=== PATIENT | female | born 1975 | race African-American/Black ===

== ENCOUNTER 2018-10-04 20:06 | Emergency (ER) | payer SELFPAY ==
[~2018-10-04] VITALS: Ht 167.6 cm; Wt 81.6 kg
--- NOTE | 2018-10-04 20:15 | NUR ---
PT [id number] FROM STRE[address] C/O "SICKLE CELL CRISIS" X 2 DAYS. PT ON MONITOR IN BED 9. WILL CONTINUE TO MONITOR.
--- NOTE | 2018-10-04 20:39 | NUR ---
PHLEB AT BEDSIDE FOR LAB DRAW
--- NOTE | 2018-10-04 20:55 | NUR ---
PHLEB UNABLE TO DRAW. AWARE.
[2018-10-04] MEDS ORDERED: HYDROMORPHONE HCL 2 MG TABLET PO PRN ×2 (21:00→23:30)
[2018-10-04] MEDS ORDERED: HYDROMORPHONE HCL 2 MG TABLET ONE ×2 (21:08→23:23)
--- NOTE | 2018-10-04 22:22 | NUR ---
LABS DRAWN AND GIVEN TO LAB
[2018-10-04 22:30] LABS: EOSINOPHILS % (AUTO) 1.2 % (0.0-6.0); HEMATOCRIT 32 % (33-45); HEMOGLOBIN 9.7 g/dL (11.5-14.8); LYMPHOCYTES # (AUTO) 1.7 /CMM (0.8-4.8); LYMPHOCYTES % (AUTO) 44.5 % (20.0-44.0); MEAN CORPUSCULAR HGB CONC 31 g/dl (31.0-36.0); MEAN CORPUSCULAR VOLUME 79 fL (82-100); MONOCYTES # (AUTO) 0.2 /CMM (0.1-1.30); MONOCYTES % (AUTO) 6.4 % (2.0-12.0); NEUTROPHILS # (AUTO) 1.8 /CMM (1.8-8.9); NEUTROPHILS % (AUTO) 46.9 % (43.0-81.0); PLATELET COUNT (AUTO) 235 /CMM (150-450); RED BLOOD CELL COUNT(AUTO) 4.02 MIL/uL (4.0-5.2); WHITE BLOOD COUNT (AUTO) 3.8 K/uL (4.3-11.0)
[2018-10-04 22:39] LABS: CALCIUM, SERUM 8.3 mg/dL (8.5-10.1); CREATININE 1.2 mg/dL (0.6-1.3); POTASSIUM 4.3 mmol/L (3.5-5.1)
[2018-10-04 22:46] VITALS: BP 119/61
[2018-10-05] MEDS ORDERED: HYDROMORPHONE HCL 2 MG TABLET PO PRN
[2018-10-05] MEDS ORDERED: HYDROMORPHONE HCL 2 MG TABLET ONE (00:24)
[2018-10-05] MEDS ORDERED: diphenhydrAMINE HCL 25 MG CAPSULE ONE (00:37)
[2018-10-05] MEDS ORDERED: diphenhydrAMINE HCL ELIX 25 MG/10 ML UDC ONE (00:39)
[2018-10-05] MEDS ORDERED: DIPHENHYDRAMINE HCL 12.5 MG/5 ML UDC PO ONE (01:00)
--- NOTE | 2018-10-05 01:03 | NUR ---
IV removed. Catheter intact and site benign. Pressure and 4x4 applied to site. No bleeding noted.Patient discharged to home in stable condition. Written and verbal after care instructions given. Patient verbalizes understanding of instruction.
== END 2018-10-05 01:09 | disposition home or self-care (01) ==
LOC: ER 20:10
DX: D57.1 Sickle-cell disease without crisis (principal); E11.9 Type 2 diabetes mellitus without complications; Z86.718 Personal history of other venous thrombosis and embolism; Z86.711 Personal history of pulmonary embolism; Z98.890 Other specified postprocedural states; Z98.51 Tubal ligation status; Z88.6 Allergy status to analgesic agent; Z59.0 Homelessness
CPT/HCPCS: 36415; 71045; 80048; 85025; 85045; 99284; A4606; Q0163 ×2; Z7610

== ENCOUNTER 2018-10-21 07:11 | Emergency (ER) | payer SELFPAY ==
[~2018-10-21] VITALS: Ht 167.6 cm; Wt 81.6 kg
[2018-10-21] MEDS ORDERED: LIDOCAINE 1%-EPI 1:100,000 20 ML VIAL ONE (07:29)
[2018-10-21] MEDS ORDERED: HYDROMORPHONE INJ 2 MG/ML DISP.SYRIN IM ONE (07:30)
[2018-10-21] MEDS ORDERED: diphenhydrAMINE HCL 50 MG/ML VIAL IM ONE (07:30)
[2018-10-21] MEDS ORDERED: LIDOCAINE 1%-EPI 1:100,000 50 ML VIAL IJ ONE (07:30)
[2018-10-21] MEDS ORDERED: diphenhydrAMINE HCL 50 MG/ML VIAL ONE (07:32)
[2018-10-21] MEDS ORDERED: HYDROMORPHONE INJ 2 MG/ML DISP.SYRIN ONE (07:32)
[2018-10-21 07:53] VITALS: BP 121/88
--- NOTE | 2018-10-21 07:58 | NUR ---
Patient discharged to home in stable condition. Written and verbal after care instructions given. Patient verbalizes understanding of instruction.
== END 2018-10-21 07:57 | disposition home or self-care (01) ==
LOC: ER 07:11
DX: L02.413 Cutaneous abscess of right upper limb (principal); G89.29 Other chronic pain; E11.9 Type 2 diabetes mellitus without complications; F17.200 Nicotine dependence, unspecified, uncomplicated; Z60.2 Problems related to living alone; Z88.6 Allergy status to analgesic agent; Z98.890 Other specified postprocedural states; Z98.51 Tubal ligation status; Z86.718 Personal history of other venous thrombosis and embolism; Z86.711 Personal history of pulmonary embolism
CPT/HCPCS: A6403; J1170; J1200; J3490

== ENCOUNTER 2018-12-07 16:57 | Emergency (ER) | payer SELFPAY ==
[~2018-12-07] VITALS: Ht 167.6 cm; Wt 78.9 kg
[2018-12-07] MEDS ORDERED: ONDANSETRON 4 MG TAB.RAPDIS SL ONE (17:30)
[2018-12-07] MEDS ORDERED: HYDROMORPHONE INJ 2 MG/ML DISP.SYRIN IM ONE (17:30)
[2018-12-07] MEDS ORDERED: diphenhydrAMINE HCL ELIX 25 MG/10 ML UDC PO ONE (17:30)
--- NOTE | 2018-12-07 17:30 | NUR ---
PT AMBULATORY ADMIT TO ER FOR GENERALZIED SICKLE CELL PAIN. PT REPORTS 9/10 GENERALIZED PAIN. MD AT BEDSIDE.
[2018-12-07] MEDS ORDERED: HYDROMORPHONE INJ 2 MG/ML DISP.SYRIN ONE (17:35)
[2018-12-07] MEDS ORDERED: ONDANSETRON 4 MG TAB.RAPDIS ONE (17:35)
[2018-12-07] MEDS ORDERED: diphenhydrAMINE HCL ELIX 25 MG/10 ML UDC ONE (17:35)
--- NOTE | 2018-12-07 17:47 | NUR ---
UA SUBMITTED, MEDS ADMINSITERED PER RX. LAB PRESENT FOR DRAWS
[2018-12-07 18:18] LABS: BASOPHILS % (AUTO) 0.7 % (0.0-2.0); EOSINOPHILS % (AUTO) 1.8 % (0.0-6.0); HEMATOCRIT 38 % (33-45); HEMOGLOBIN 11.2 g/dL (11.5-14.8); LYMPHOCYTES # (AUTO) 1.2 /CMM (0.8-4.8); LYMPHOCYTES % (AUTO) 33.9 % (20.0-44.0); MEAN CORPUSCULAR HGB CONC 30 g/dl (31.0-36.0); MEAN CORPUSCULAR VOLUME 86 fL (82-100); MONOCYTES # (AUTO) 0.3 /CMM (0.1-1.30); MONOCYTES % (AUTO) 7.6 % (2.0-12.0); NEUTROPHILS # (AUTO) 2.1 /CMM (1.8-8.9); PLATELET COUNT (AUTO) 275 /CMM (150-450); RED BLOOD CELL COUNT(AUTO) 4.45 MIL/uL (4.0-5.2); WHITE BLOOD COUNT (AUTO) 3.7 K/uL (4.3-11.0)
[2018-12-07 18:35] LABS: ALBUMIN 3.3 g/dL (3.4-5.0); BILIRUBIN,DIRECT 0.1 mg/dL (0.0-0.2); BILIRUBIN,TOTAL 0.4 mg/dL (0.2-1.0); CALCIUM, SERUM 8.7 mg/dL (8.5-10.1); CREATININE 1.6 mg/dL (0.6-1.3); POTASSIUM 4.3 mmol/L (3.5-5.1); TOTAL PROTEIN, SERUM 9.9 g/dL (6.4-8.2)
[2018-12-07] MEDS ORDERED: INSU100V7 SQ (18:46)
[2018-12-07] MEDS ORDERED: INSU100V11 SQ (18:46)
[2018-12-07] MEDS ORDERED: DIPH50CA4 PO (18:46)
[2018-12-07] MEDS ORDERED: FOLI1TAB16 PO (18:46)
[2018-12-07] MEDS ORDERED: HYDR500C2 PO (18:46)
[2018-12-07] MEDS ORDERED: RIVA10TA PO (18:46)
[2018-12-07] MEDS ORDERED: HYDR4TAB57 PO (18:46)
[2018-12-07] MEDS ORDERED: IV NS 0.9% 1,000 ML BAG IV ONE ×2 (19:00→20:00)
--- NOTE | 2018-12-07 19:17 | NUR ---
ENDORSED CARE TO NARENDRA LIMA. NARENDRA LIMA AT BEDSIDE TO PLACE IV.
--- NOTE | 2018-12-07 19:35 | NUR ---
24G IV STARTED IN RT ARMPIT BY Fatemeh QUINONEZ NP.
[2018-12-07] MEDS ORDERED: HYDROMORPHONE 1 MG/1 ML DISP.SYRIN ONE ×3 (19:38→21:11)
[2018-12-07] MEDS ORDERED: HYDROMORPHONE INJ 2 MG/ML DISP.SYRIN IV ONE (20:00)
[2018-12-07 20:15] LABS: APPEARANCE,URINE Clear (CLEAR); BILIRUBIN,URINE Negative (NEGATIVE); BLOOD, URINE Trace-lysed Ery/uL (NEGATIVE); COLOR,URINE Yellow (YELLOW); KETONES,URINE Negative (NEGATIVE); LEUKOCYTE ESTERASE ,URINE Negative (NEGATIVE); NITRITE, URINE Negative (NEGATIVE); PH,URINE 5.5 (5.0-8.0); PROTEIN,URINE Trace mg/dl (NEGATIVE); UGLUCOSE >=1000 mg/dL (NEGATIVE); UROBILINOGEN,URINE 0.2 EU/dL (0.2)
[2018-12-07 20:48] LABS: BACTERIA,URINE Rare /HPF (None Seen); RBC,URINE 0-2 /HPF (0-2); SQUAMOUS EPITHELIAL CELL,UR Few /HPF (None Seen); WBC,URINE 0-2 /HPF (0-3)
[2018-12-07] MEDS ORDERED: INSULIN REGULAR, HUMAN 100 UNIT/ML 10 ML VIAL ONE (21:11)
--- NOTE | 2018-12-07 21:25 | NUR ---
IV removed. Catheter intact and site benign. Pressure and 4x4 applied to site. No bleeding noted.
[2018-12-07] MEDS ORDERED: INSULIN REGULAR, HUMAN 100 UNIT/ML 10 ML VIAL SQ ONE (21:30)
[2018-12-07] MEDS ORDERED: HYDROMORPHONE 1 MG/1 ML DISP.SYRIN IV ONE (21:30)
[2018-12-07 21:49] VITALS: BP 105/82
--- NOTE | 2018-12-07 21:51 | NUR ---
Patient discharged to home in stable condition. Written and verbal after care instructions given. Patient verbalizes understanding of instruction. PT WAS INSTRUCTED NOT TO DRIVE. PT WAS ALSO INSTRUCTED TO RECHECK HER BLOOD SUGAR LEVEL BEFORE SHE TAKES LANTUS TONIGHT. PT AMBULATE DOUT WITH A STEADY GAIT. VSS.
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
== END 2018-12-07 21:51 | disposition home or self-care (01) ==
LOC: ER 17:01
DX: E11.65 Type 2 diabetes mellitus with hyperglycemia (principal); M79.604 Pain in right leg; M79.605 Pain in left leg; M54.9 Dorsalgia, unspecified; F17.200 Nicotine dependence, unspecified, uncomplicated; Z86.718 Personal history of other venous thrombosis and embolism; Z86.711 Personal history of pulmonary embolism; Z98.890 Other specified postprocedural states; Z88.6 Allergy status to analgesic agent; Z60.2 Problems related to living alone; Z79.4 Long term (current) use of insulin; Z79.899 Other long term (current) drug therapy
CPT/HCPCS: 36415; 80048; 80076; 81001; 82962 ×2; 83615; 84703; 85025; 85045; 96361; 96372 ×2; 96374; 96376; 99283; J1170 ×4; J1815; J7030 ×2; Q0162; Q0163; 81000-TC

== ENCOUNTER 2019-03-07 09:52 | Emergency (ER) | payer SELFPAY ==
[~2019-03-07] VITALS: Ht 167.6 cm; Wt 78.9 kg
[~2019-03-07 09:52] MED LIST: DIPH50CA4 PO; FOLI1TAB16 PO; HYDR4TAB57 PO; HYDR500C2 PO; INSU100V11 SQ; INSU100V7 SQ; RIVA10TA PO
[2019-03-07 09:53] VITALS: BP 121/85
[2019-03-07] MEDS ORDERED: HYDROMORPHONE HCL 2 MG TABLET PO STA (10:16)
[2019-03-07] MEDS ORDERED: HYDROMORPHONE HCL 2 MG TABLET ONE (10:36)
== END 2019-03-07 10:47 | disposition home or self-care (01) ==
LOC: ER 09:57
DX: G89.29 Other chronic pain (principal); D57.00 Hb-SS disease with crisis, unspecified; M54.5 Low back pain; I25.2 Old myocardial infarction; E11.9 Type 2 diabetes mellitus without complications; Z86.718 Personal history of other venous thrombosis and embolism; Z98.890 Other specified postprocedural states; Z98.51 Tubal ligation status; Z88.6 Allergy status to analgesic agent; Z60.2 Problems related to living alone; F17.200 Nicotine dependence, unspecified, uncomplicated; Z76.5 Malingerer [conscious simulation]; Z79.4 Long term (current) use of insulin